=== PATIENT | male | born 1985 | race Caucasian/White ===

== ENCOUNTER → 2023-02-16 | Outpatient (CLI) | payer BC ==
--- NOTE | 2023-02-19 08:03 | CT ---
EXAMINATION TYPE: CT chest w con CT DLP: 347.40 mGycm, Automated exposure control for dose reduction was used. DATE OF EXAM: 02/16/2023 5:21 PM COMPARISON: Chest radiograph from 02/12/2023 CLINICAL INDICATION:Male, 38 years old with history of R05.3 chronic cough, productive cough and sput um TECHNIQUE: Multiple axial images were obtained through the chest. Sagittal and coronal reformats were created for review. Contrast used:100 mL of Isovue 370 with IV Contrast Oral contrast used: none. FINDINGS: LUNGS/ PLEURA: No evidence of focal consolidation, pneumothorax or pleural effusion. AIRWAY: Patent and unremarkable. No evidence for bronchiectasis or bronchial wall thickening. HEART: Size within normal limits. MEDIASTINUM: No gross evidence of adenopathy. VASCULATURE: No aortic aneurysm. Visualized central pulmonary arterial vasculature does not demonstr ate filling defect MUSCULOSKELETAL: No acute osseous abnormalities SOFT TISSUES/LYMPH NODES: Unremarkable. LOWER NECK: No significant findings. UPPER ABDOMEN: No significant findings. IMPRESSION: No acute thoracic process. No evidence for pneumonia.
== END | disposition home or self-care (01) ==
LOC: RADCTMAIN 16:48
PROVIDERS: ATTEND Internal Medicine Critical Care Medicine
DX: R05.3 Chronic cough (principal)
CPT/HCPCS: 71260

== ENCOUNTER → 2023-04-20 | Outpatient (CLI) | payer BC | END | disposition home or self-care (01) | LOC: LABWHC1 14:27 | PROVIDERS: ATTEND Internal Medicine Critical Care Medicine | DX: R05.9 Cough, unspecified (principal); R09.3 Abnormal sputum | CPT/HCPCS: 36415 ==

== ENCOUNTER → 2023-12-28 | Outpatient (CLI) | payer BC | END | disposition home or self-care (01) | LOC: LABWHC1 16:26 | PROVIDERS: ATTEND Allergy & Immunology | DX: Z00.00 Encounter for general adult medical examination without abnormal findings (principal); J67.9 Hypersensitivity pneumonitis due to unspecified organic dust | CPT/HCPCS: 36415; 87070; 87116; 87205; 87206; 87561 ==

== ENCOUNTER → 2023-12-28 | Outpatient (CLI) | payer BC ==
--- NOTE | 2023-12-29 09:08 | CT ---
EXAMINATION TYPE: CT chest wo con DATE OF EXAM: 12/28/2023 COMPARISON: None HISTORY: thick phlegm cough x few years. high resolution CT DLP: 1057.80 mGycm High-resolution noncontrast CT of the chest was performed with the patient in the prone and supine po sitions. Lung and mediastinal window settings are submitted. The lungs appear to be well-aerated. I do not see evidence for fibrotic change. There is no eviden ce for bronchiectasis, groundglass infiltrate, nodule or mass. No pleural effusion is identified. I do not see evidence for hilar or mediastinal mass or adenopathy. IMPRESSION: No significant abnormality is seen. Correlate clinically.
== END | disposition home or self-care (01) ==
LOC: RADCTMAIN 16:53
PROVIDERS: ATTEND Allergy & Immunology
DX: J67.9 Hypersensitivity pneumonitis due to unspecified organic dust (principal)
CPT/HCPCS: 71250

== ENCOUNTER → 2024-03-26 | Outpatient (CLI) | payer BC ==
--- NOTE | 2024-03-26 18:22 | CT ---
EXAMINATION TYPE: CT abdomen pelvis w con CT DLP: 554.3 mGycm, Automated exposure control for dose reduction was used. DATE OF EXAM: 03/26/2024 6:15 PM COMPARISON: 12/28/2023 CLINICAL INDICATION:Male, 39 years old with history of K44.9 DIAPHRAGMATIC HERNIA WITHOUT OBSTRUCTION OR; RT GROIN PAIN TECHNIQUE: Axial CT abdomen pelvis w con;Sagittal and coronal reformats were created on a separate w orkstation. Contrast used:100ml mL of Isovue 300 with IV Contrast, (none if empty) Oral contrast used: with Oral Contrast (none if empty) FINDINGS: LOWER CHEST: Unremarkable ABDOMEN LIVER: Unremarkable GALLBLADDER AND BILE DUCTS: Unremarkable. PANCREAS: Unremarkable. SPLEEN: Unremarkable. ADRENAL GLANDS: Unremarkable. KIDNEYS AND URETERS: No evidence of hydronephrosis or renal calculus. The ureters are unremarkable. PELVIS BLADDER: Unremarkable REPRODUCTIVE: Unremarkable. ABDOMEN & PELVIS STOMACH AND BOWEL: No evidence of bowel obstruction. The appendix is normal. PERITONEUM/RETROPERITONEUM: No evidence of pneumoperitoneum or free fluid. VASCULATURE: No evidence of aortic aneurysm. MUSCULOSKELETAL: No acute osseous abnormalities LYMPH NODES: No gross evidence for lymphadenopathy. SOFT TISSUE/ABDOMINAL WALL: Left inguinal fat-containing hernia. Fat-containing umbilical hernia. IMPRESSION: 1. No evidence for acute abdominal process. No diaphragmatic hernia definitively visualized. 2. Left small fat-containing ventral hernia and acute umbilical hernia. 3. The appendix normal. No obstructive uropathy.
== END | disposition home or self-care (01) ==
LOC: RADCTMAIN 16:07
PROVIDERS: ATTEND Family Medicine
DX: K43.9 Ventral hernia without obstruction or gangrene (principal); K42.9 Umbilical hernia without obstruction or gangrene; K44.9 Diaphragmatic hernia without obstruction or gangrene
CPT/HCPCS: 74177; Q9967